=== PATIENT | female | born 1990 | race Two or more races ===

== ENCOUNTER 2019-01-05 18:58 | Emergency (ER) | payer OTHER ==
[~2019-01-05] VITALS: Ht 170.2 cm; Wt 77.7 kg
[2019-01-05 19:08] VITALS: BP 142/76
[2019-01-05] MEDS ORDERED: LIDOCAINE-MPF 1%, 5ML INFIL ONE (20:00)
[2019-01-05] MEDS ORDERED: LIDOCAINE-MPF 1%, 5ML ONE (20:48)
[2019-01-05] MEDS ORDERED: NEOSPORIN OINT. PKT 1 PACKET ONE (20:48)
--- NOTE | 2019-01-05 20:50 | NUR ---
provider anestitized, tehn irrigated, then sutured hand laceration. curriculum writer dressed with bacitracin dressing and cesario wrap. Provided with extra dressing material for home wound care
== END 2019-01-05 21:04 | disposition home or self-care (01) ==
LOC: ED 21:00
DX: S61.511A Laceration without foreign body of right wrist, initial encounter (principal); F17.210 Nicotine dependence, cigarettes, uncomplicated; W01.0XXA Fall on same level from slipping, tripping and stumbling without subsequent striking against object, initial encounter; Y93.89 Activity, other specified; Y92.009 Unspecified place in unspecified non-institutional (private) residence as the place of occurrence of the external cause; Y99.8 Other external cause status
CPT/HCPCS: 12041; 99284